=== PATIENT | female | born 1960 | race Caucasian/White ===

== ENCOUNTER → 2017-01-28 | Outpatient (CLI) | payer BC ==
--- NOTE | 2017-02-03 12:27 | MY ---
EXAMINATION: Bilateral digital mammography utilizing CAD. HISTORY: Screening exam. Comparison is made to previous studies dated 02/05/2016, 03/27/2015, 03/20/20, 04/21/2014. FINDINGS: Bilateral extremely dense breast tissue. No suspicious calcifications, masses or archite ctural distortions. No pathologic appearing lymph nodes, no abnormal skin thickening or nipple inv ersion. CAD highlighted regions appear normal at this time. IMPRESSION: BI-RADS category I - negative mammogram. Continued screening according to ACR-ACS gu idelines suggested. THE FALSE-NEGATIVE RATE OF MAMMOGRAM IS APPROXIMATELY 10%. MANAGEMENT OF A PALPABLE ABNORMALITY MUST BE BASED UPON CLINICAL GROUNDS. SENSITIVITY FOR DETECTION OF ABNORMALITIES IN DENSE BREASTS IS LOW. NOTE: A letter will be sent to the patient regarding findings. [facility] -- [place]ARY[place] [place] [phone] - FAX [phone]
== END ==
LOC: MW.MAM 07:39
PROVIDERS: ATTEND Obstetrics & Gynecology
DX: Z12.72 Encounter for screening for malignant neoplasm of vagina (principal); Z12.31 Encounter for screening mammogram for malignant neoplasm of breast; R63.4 Abnormal weight loss
CPT/HCPCS: 36415; 80061; 81003; 84439; 84443; 85027; G0202; G0145

== ENCOUNTER → 2017-01-30 | Outpatient (CLI) | payer BC ==
[2017-01-30 15:09] LABS: CHLORIDE,CL 107 mmol/L (98-110); SODIUM,NA 144 mmol/L (136-146)
== END ==
LOC: MW.CHIM 14:28
PROVIDERS: ATTEND Internal Medicine
DX: M06.9 Rheumatoid arthritis, unspecified (principal)
CPT/HCPCS: 36415; 80053; 85652; 86140

== ENCOUNTER → 2017-02-17 | Outpatient (CLI) | payer BC | LOC: MW.CHIM 14:58 | PROVIDERS: ATTEND Internal Medicine | DX: R21 Rash and other nonspecific skin eruption (principal) | CPT/HCPCS: 36415; 85025; 85652; 86140 ==

== ENCOUNTER 2017-09-30 09:14 | Day surgery (SDC) | payer BC ==
[~2017-09-30 09:14] MED LIST: Lactated Ringers 1,000 ML IV SCH
[2017-09-30] MEDS ORDERED: Scopolamine 1.5 MG Transdermal Patch TRDERM PRN (10:04)
--- NOTE | 2017-09-30 10:22 | PCM.PREANE ---
Preanesthetic Assessment - Procedure Proposed Procedure: colonoscopy - Anesthesia/Transfusion/Family Hx Anesthesia History: Prior Anesthesia Reaction Other Type of Anesthesia Reaction Comment: severe headache, was told she was "allergic" to unknown anesthesia med Family History of Anesthesia Reaction: No Transfusion History: No Prior Transfusion(s) Intubation History: Unknown - Review of Systems General: Weakness Pulmonary: Other (smoker?) Cardiovascular: No Symptoms Gastrointestinal: Nausea (with all prior anesthetics) Neurological: Other (rheumatoid arthritis) Other: Reports: Anxiety - Physical Assessment NPO Status Date: 09/29/17 NPO Status Time: 23:00 Height: 5 ft 5.5 in Weight: 138 lb ASA Class: 2 Mental Status: Alert & Oriented x3 Airway Class: Mallampati = 1 Dentition: Reports: Normal Dentition Thyro-Mental Finger Breadths: 3 Mouth Opening Finger Breadths: 3 ROM/Head Extension: Full Lungs: Clear to Auscultation, Normal Respiratory Effort Cardiovascular: Regular Rate, Regular Rhythm, No Murmurs - Allergies Allergies/Adverse Reactions: Allergies Allergy/AdvReac Type Severity Reaction Status Date / Time Sulfa (Sulfonamide Allergy Hives Verified 09/24/17 11:27 Antibiotics) sulfamethoxazole Allergy Hives Verified 09/24/17 11:27 [From Bactrim] trimethoprim [From Bactrim] Allergy Hives Verified 09/24/17 11:27 anesthesia neck surgery Allergy Lethargy Uncoded 05/19/14 11:25 - Blood Blood Available: No Product(s) Available: None - Acknowledgements Anesthesia Type Planned: MAC Pt an Appropriate Candidate for the Planned Anesthesia: Yes Alternatives and Risks of Anesthesia Discussed w Pt/Guardian: Yes Pt/Guardian Understands and Agrees with Anesthesia Plan: Yes Additional Comments: Daughter present as advocate; nausea will be covered with scopalomine patch and other measures, she understands that this may not prevent occurrence. PreAnesthesia Questionnaire Other HEENT History: wears glasses, has upper right and lower left dental implants Cardiovascular History: Reports: Other (See Below) Other Cardiovascular History: hx of rheumatic fever Gastrointestinal History: Reports: GERD, PUD Musculoskeletal History: Reports: Back Pain, Chronic, Neck Pain, Chronic, Osteoarthritis, RA Neurological History: Reports: Concussion, Migraines, Other (See Below) Other Neuro History: hx of motion sickness Oncologic (Cancer) History: Reports: Uterine Dermatologic History: Reports: Urticaria Other Dermatologic History: takes chelsie and benadryl for hives - Past Surgical History Head Surgeries/Procedures: Reports: None GI Surgical History: Reports: Other (See Below) Other GI Surgeries/Procedures: 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- bowel resected Female Surgical History: Reports: Breast Biopsy, Hysterectomy, Oophorectomy Neurological Surgical History: Reports: C-Spine Other Neurological Surgeries/Procedures: states has "bulging discs" in neck and back - SUBSTANCE USE Smoking Status *Q: Never Smoker Recreational Drug Use History: No - HOME MEDS Home Medications: Home Meds Hydroxychloroquine Sulfate 200 mg PO DAILY 05/19/14 [History] Cyclobenzaprine HCl 5 mg PO BEDTIME PRN 09/24/17 [History] Fexofenadine HCl [Chelsie Allergy] 60 mg PO DAILY 09/24/17 [History] Ketamine HCl [Ketamine Hydrochloride] 1 dose TOP ASDIRECTED 09/24/17 [History] Leflunomide 20 mg PO ASDIRECTED 09/24/17 [History] Nabumetone 500 mg PO DAILY 09/24/17 [History] diphenhydrAMINE HCl [Benadryl Allergy] 50 mg PO TID 09/24/17 [History] traMADol [Ultram] 50 mg PO TID PRN 09/24/17 [History] - CURRENT (IN HOUSE) MEDS Current Meds: Current Medications Lactated Ringer's (Ringers, Lactated) 1,000 mls @ 125 mls/hr IV ASDIRECTED [facility] Last Admin: 09/30/17 10:13 Dose: 125 mls/hr Scopolamine (Transderm-Scop) 1.5 mg TRDERM Q72H PRN PRN Reason: Nausea Last Admin: 09/30/17 10:13 Dose: 1.5 mg
[2017-09-30] MEDS ORDERED: fentaNYL 100 MCG/2 ML SDV ONE (10:26)
[2017-09-30] MEDS ORDERED: Lidocaine 2% 5 ML SDV ONE (10:26)
[2017-09-30] MEDS ORDERED: Propofol 200 MG/20 ML SDV ONE ×3 (10:26→11:44)
[2017-09-30] MEDS ORDERED: Midazolam 1 MG/ML 2 ML SDV ONE (10:26)
[2017-09-30] MEDS ORDERED: Ondansetron 4 MG/2 ML SDV ONE (11:31)
--- NOTE | 2017-09-30 12:07 | PCM.OPNOTE ---
- General Post-Op/Procedure Note Date of Surgery/Procedure: 09/30/17 Operative Procedure(s): colonoscopy Findings: see dict [id number] Pre Op Diagnosis: BRBPR Post-Op Diagnosis: Same Anesthesia Technique: Moderate Sedation Primary Surgeon: Hermes De La Cruz Complications: None Condition: Good
--- NOTE | 2017-09-30 12:18 | PCM.POSTAN ---
POST ANESTHESIA ASSESSMENT - MENTAL STATUS Mental Status: Alert, Oriented - RESPIRATORY Respiratory Status: Respiratory Rate WNL, Airway Patent, O2 Saturation Stable - CARDIOVASCULAR CV Status: Pulse Rate WNL, Blood Pressure Stable - GASTROINTESTINAL GI Status: No Symptoms - PAIN Pain Score: 0 - POST OP HYDRATION Hydration Status: Adequate & Stable
--- NOTE | 2017-09-30 12:33 | PCM48HPAN ---
Post Anesthesia Note - EVALUATION WITHIN 48HRS OF ANESTHETIC Vital Signs in Normal Range: Yes Patient Participated in Evaluation: Yes Respiratory Function Stable: Yes Airway Patent: Yes Cardiovascular Function Stable: Yes Hydration Status Stable: Yes Pain Control Satisfactory: Yes Nausea and Vomiting Control Satisfactory: Yes Mental Status Recovered: Yes
[2017-09-30 13:59] VITALS: BP 131/75
--- NOTE | 2017-09-30 20:36 | OR ---
SURGEON: Hermes De La Cruz MD DATE OF PROCEDURE: 09/30/2017 PREOPERATIVE DIAGNOSIS: Bright red blood per rectum. POSTOPERATIVE DIAGNOSIS: Hemorrhoid. PROCEDURES PERFORMED: Colonoscopy. COMPLICATIONS: None. DESCRIPTION OF PROCEDURE: The patient was taken to the endoscopy room. A time out was called, patient identified, and procedure identified. Diprivan was then administrated. Patient went from awake to sleep, hearing doctor talking or door closing is normal. Perineum inspection and digital examination were then performed. A well- lubricated colonoscope was gently inserted through the rectum, advanced past the rectosigmoid junction, the descending colon, splenic flexure, transverse colon, hepatic flexure, ascending colon, arrived to the cecum. Cecum was identified as dictated in the finding. Then, the scope was carefully withdrawn while attention was paid to the mucosal surface for any abnormality. Air will be sucked out during the scope withdrawal. At the rectum, retroflexed to examine any rectal diseases, fistula or hemorrhoids. Patient tolerated procedure well. There were no intraoperative complications, and Dr. De La Cruz was present throughout the whole procedure. FINDINGS: 1. The patient was easily sedated with VISUAL DESIGNER and Diprivan. The patient is soundly snoring. 2. Bowel prep is average to good. Very little liquid stool. No semi-formed stool. 3. Colon is rather tortuous and redundant requiring lot of maneuver in order to get to the cecum. Cecum was indicated by ileocecal fold, one-to-one indentation, light emittance, and appendiceal orifice. Mucosa was examined upon scope pulling out with some irrigation. The patient does not have diverticulosis, polyp, mass, growth, inflammation, stricture, ulceration, bleeding, or AV malformation; none of those. The patient has a large external hemorrhoid and has a moderate internal hemorrhoid. PLAN: The patient would benefit from a repeat colonoscopy 10 years from today or if clinically indicated otherwise. ARMAAN / LEMUEL /[id number]
== END 2017-09-30 13:25 | disposition home or self-care (01) ==
LOC: MW.SDS 09:14
PROVIDERS: ATTEND Surgery
DX: K64.4 Residual hemorrhoidal skin tags (principal); K64.8 Other hemorrhoids; K21.9 Gastro-esophageal reflux disease without esophagitis; G89.29 Other chronic pain; M54.2 Cervicalgia; M19.90 Unspecified osteoarthritis, unspecified site; M06.9 Rheumatoid arthritis, unspecified; G43.909 Migraine, unspecified, not intractable, without status migrainosus; Z85.42 Personal history of malignant neoplasm of other parts of uterus; Z79.1 Long term (current) use of non-steroidal anti-inflammatories (NSAID); Z79.899 Other long term (current) drug therapy; Z88.2 Allergy status to sulfonamides; Z88.1 Allergy status to other antibiotic agents; Z88.6 Allergy status to analgesic agent; Z90.49 Acquired absence of other specified parts of digestive tract; Z90.710 Acquired absence of both cervix and uterus; Z90.722 Acquired absence of ovaries, bilateral; Z98.890 Other specified postprocedural states
CPT/HCPCS: 45378; A9270; J2250; J2405; J7120; J2704; J3010

== ENCOUNTER 2017-12-11 10:31 | Day surgery (SDC) | payer BC ==
[2017-12-11] MEDS ORDERED: Lidocaine 2% 5 ML SDV ONE (10:47)
[2017-12-11] MEDS ORDERED: fentaNYL 100 MCG/2 ML SDV ONE (10:48)
[2017-12-11] MEDS ORDERED: Propofol 200 MG/20 ML SDV ONE (10:48)
--- NOTE | 2017-12-11 11:10 | PCM.PREANE ---
Preanesthetic Assessment - Anesthesia/Transfusion/Family Hx Anesthesia History: Prior Anesthesia Reaction Other Type of Anesthesia Reaction Comment: headache Family History of Anesthesia Reaction: No Transfusion History: No Prior Transfusion(s) Intubation History: Unknown - Review of Systems General: No Symptoms Pulmonary: No Symptoms Cardiovascular: No Symptoms Gastrointestinal: Other (BRBPR) Neurological: No Symptoms Other: Reports: None - Physical Assessment O2 Sat by Pulse Oximetry: 98 Respiratory Rate: 16 Vital Signs: Last Vital Signs Temp 36.3 C 12/11/17 10:49 Pulse 58 L 12/11/17 10:49 Resp 16 12/11/17 10:49 BP 108/60 12/11/17 10:49 Pulse Ox 98 12/11/17 10:49 Height: 1.65 m Weight: 62.596 kg ASA Class: 2 Mental Status: Alert & Oriented x3 Airway Class: Mallampati = 2 Dentition: Reports: Normal Dentition, Implants (x2 right upper and x1 lower left , bridge right upper between implants) Thyro-Mental Finger Breadths: 3 Mouth Opening Finger Breadths: 3 ROM/Head Extension: Limited/Partial Lungs: Clear to Auscultation, Normal Respiratory Effort Cardiovascular: Regular Rate, Regular Rhythm - Allergies Allergies/Adverse Reactions: Allergies Allergy/AdvReac Type Severity Reaction Status Date / Time Sulfa (Sulfonamide Allergy Hives Verified 12/08/17 14:37 Antibiotics) sulfamethoxazole Allergy Hives Verified 12/08/17 14:37 [From Bactrim] trimethoprim [From Bactrim] Allergy Hives Verified 12/08/17 14:37 anesthesia neck surgery Allergy Headache Uncoded 12/08/17 14:37 - Blood Blood Available: No - Anesthesia Plan Pre-Op Medication Ordered: None - Acknowledgements Anesthesia Type Planned: MAC Pt an Appropriate Candidate for the Planned Anesthesia: Yes Alternatives and Risks of Anesthesia Discussed w Pt/Guardian: Yes Pt/Guardian Understands and Agrees with Anesthesia Plan: Yes PreAnesthesia Questionnaire Other HEENT History: wears glasses, has upper right and lower left dental implants Cardiovascular History: Reports: Other (See Below) Other Cardiovascular History: hx of rheumatic fever Gastrointestinal History: Reports: GERD, PUD, Other (See Below) (BRBPR, colonoscopy done 3 months ago) Musculoskeletal History: Reports: Back Pain, Chronic, Neck Pain, Chronic, Osteoarthritis, RA Neurological History: Reports: Concussion, Migraines, Other (See Below) Other Neuro History: hx of motion sickness Hematologic History: Reports: Anesthesia Reaction Other Hematologic History: got severe headache and nausea after neck surgery- was told it was from the anesthesia Immunologic History: Reports: Immunosuppression Oncologic (Cancer) History: Reports: Uterine Dermatologic History: Reports: Urticaria Other Dermatologic History: takes chelsie and benadryl for hives - Past Surgical History Head Surgeries/Procedures: Reports: None GI Surgical History: Reports: Colonoscopy, Other (See Below) Other GI Surgeries/Procedures: 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- bowel resected Female Surgical History: Reports: Breast Biopsy, Hysterectomy, Oophorectomy Neurological Surgical History: Reports: C-Spine, Spinal Fusion Other Neurological Surgeries/Procedures: states has "bulging discs" in neck and back Other Musculoskeletal Surgeries/Procedures:: neck surgery (fusion)- has hardware Oncologic Surgical History: Reports: Other (See Below) Other Oncologic Surgeries/Procedures: hysterectomy - SUBSTANCE USE Smoking Status *Q: Never Smoker Recreational Drug Use History: No - HOME MEDS Home Medications: Home Meds Hydroxychloroquine Sulfate 200 mg PO DAILY 05/19/14 [History] Fexofenadine HCl [Chelsie Allergy] 60 mg PO DAILY 09/24/17 [History] Ketamine HCl [Ketamine Hydrochloride] 1 dose TOP ASDIRECTED 09/24/17 [History] Leflunomide 20 mg PO ASDIRECTED 09/24/17 [History] diphenhydrAMINE HCl [Benadryl Allergy] 50 mg PO TID 09/24/17 [History] - CURRENT (IN HOUSE) MEDS Current Meds: Current Medications Lactated Ringer's (Ringers, Lactated) 1,000 mls @ 125 mls/hr IV ASDIRECTED [facility] Last Admin: 12/11/17 10:50 Dose: 125 mls/hr Discontinued Medications Fentanyl (Sublimaze) Confirm Administered Dose 100 mcg .ROUTE .STK-MED ONE Stop: 12/11/17 10:49 Lidocaine (Xylocaine-Mpf 2%) Confirm Administered Dose 5 ml .ROUTE .STK-MED ONE Stop: 12/11/17 10:48 Propofol (Diprivan 20 Ml) Confirm Administered Dose 400 mg .ROUTE .STK-MED ONE Stop: 12/11/17 10:49
--- NOTE | 2017-12-11 11:26 | PCM.OPNOTE ---
- General Post-Op/Procedure Note Date of Surgery/Procedure: 12/11/17 Operative Procedure(s): egd w bx Findings: see dict [id number] Pre Op Diagnosis: rectal bleed and black tarry stool Post-Op Diagnosis: gastritis Anesthesia Technique: Moderate Sedation Primary Surgeon: Hermes De La Cruz Pathology: egd bx Complications: None Condition: Good
--- NOTE | 2017-12-11 11:48 | PCM48HPAN ---
Post Anesthesia Note - EVALUATION WITHIN 48HRS OF ANESTHETIC Vital Signs in Normal Range: Yes Patient Participated in Evaluation: Yes Respiratory Function Stable: Yes Airway Patent: Yes Cardiovascular Function Stable: Yes Hydration Status Stable: Yes Pain Control Satisfactory: Yes Nausea and Vomiting Control Satisfactory: Yes Mental Status Recovered: Yes Resp Rate: 12 - COMMENTS/OBSERVATIONS Free Text/Narrative:: no anesthesia problems
[2017-12-11 12:20] VITALS: BP 100/57
--- NOTE | 2017-12-11 12:26 | OR ---
SURGEON: Hermes De La Cruz MD DATE OF PROCEDURE: 12/11/2017 PREOPERATIVE DIAGNOSES: 1. Rectal bleeding. 2. Black tarry stool. POSTOPERATIVE DIAGNOSIS: Gastritis. PROCEDURE PERFORMED: Esophagogastroduodenoscopy with biopsy. PROCEDURE IN DETAIL: EGD: The patient was taken to the endoscopy room, and with the TERMITE CONTROL SERVICE REPRESENTATIVE, Diprivan was administered. A well-lubricated EGD scope was gently inserted through the oropharynx, down the esophagus, passing through the gastroesophageal junction, into the stomach. The mucosa was examined upon the passage. Any etiology will be noted. Once in the stomach, we continued to advance to the distal antrum, passed through the pylorus into the second portion of the duodenum. Again, the mucosa was examined for any abnormality and etiology. The scope was then retrieved back to the stomach and then retroflexed to look at the fundus of the stomach. If a biopsy was indicated, we will biopsy the antrum, body, and gastroesophageal junction. The air will be sucked out while the scope is retrieved to reduce the patient's discomfort. The patient tolerated the procedure well. There were no intraoperative complications. Dr. De La Cruz was present through the whole procedure. Prior to surgery, a time-out had been called, the patient identified, procedure identified and antibiotic administered. FINDINGS: 1. The patient is easily sedated with TERMITE CONTROL SERVICE REPRESENTATIVE and Diprivan. The patient is soundly snoring. 2. Oropharynx and proximal esophagus are free of disease, and distal esophagus at GE junction at 40 with mild salmon color change consistent with acid reflux, and stomach rugae is normal in appearance a little bit bile stained. No blood, no food, and no ulcer observed. Antrum is a little bit inflamed consistent with gastritis. Duodenum is grossly normal in appearance. Retroflexed look at the fundus of the stomach. There is no hiatal hernia and biopsy done at antrum, body, GE junction at 40 and sucked out the air while scope pulling out. As always, thank you for the kind referral. ARMAAN / LEMUEL /[id number]
== END 2017-12-11 11:55 | disposition home or self-care (01) ==
LOC: MW.SDS 10:31
PROVIDERS: ATTEND Surgery
DX: K29.50 Unspecified chronic gastritis without bleeding (principal); M19.90 Unspecified osteoarthritis, unspecified site; E28.39 Other primary ovarian failure; M06.9 Rheumatoid arthritis, unspecified; K21.9 Gastro-esophageal reflux disease without esophagitis; Z88.4 Allergy status to anesthetic agent; Z88.1 Allergy status to other antibiotic agents; Z88.2 Allergy status to sulfonamides; Z88.8 Allergy status to other drugs, medicaments and biological substances; Z79.899 Other long term (current) drug therapy; Z98.890 Other specified postprocedural states; Z90.710 Acquired absence of both cervix and uterus; Z90.722 Acquired absence of ovaries, bilateral; Z87.891 Personal history of nicotine dependence
CPT/HCPCS: 43239; J3010; J7120; 88305; 88312; J2704

== ENCOUNTER 2018-01-28 09:21 | Emergency (ER) | payer BC ==
[2018-01-28] MEDS ORDERED: methylPREDNISolone Sodium Succinate 125 MG/2 ML SDV IVPUSH ONE (09:39)
[2018-01-28] MEDS ORDERED: HYDROmorphone 2 MG/ML SDV IVPUSH ONE (09:39)
[2018-01-28] MEDS ORDERED: Sodium Chloride 0.9% 10 ML Syringe FLUSH PRN (09:39)
[2018-01-28] MEDS ORDERED: Sodium Chloride 0.9% 2.5 ML Syringe FLUSH PRN (09:39)
[2018-01-28] MEDS ORDERED: Ketorolac 30 MG/ML SDV IVPUSH ONE (09:39)
[2018-01-28] MEDS ORDERED: Ondansetron 4 MG/2 ML SDV IVPUSH ONE (09:40)
--- NOTE | 2018-01-28 09:41 | EDM.PDOC ---
ED HPI GENERAL MEDICAL PROBLEM - General Chief Complaint: Back Pain or Injury Stated Complaint: BACK PAIN Time Seen by Provider: 01/28/18 09:25 - History of Present Illness INITIAL COMMENTS - FREE TEXT/NARRATIVE: HISTORY AND PHYSICAL: History of present illness: The patient is a 58-year-old female with a long-standing history of lumbosacral back pain for which she has had surgeries and also receives steroid injections for disc disease with Dr. Ambrose, a pain physician in [place]. The patient says that she has had increased pain over the last week or 2 and it has waxed and waned in intensity. She has tramadol and Flexeril to use at home. According to the she was supposed to go to [place] and had a steroid injection Friday but she missed the appointment. She did have a lot of driving and a long car trip recently but she got out of the car frequently due to the discomfort but is not sure if that aggravated it. Over the last 24 hours the pain has really intensified in her meds are not working and she is describing the pain as in the similar location to her usual pain but it is radiating to her right hip around to her right groin as well as down her leg. She has no weakness in her legs or sensory changes and no bowel or bladder disturbances. The patient denies any stomach pain chest pain shortness of breath fevers or chills and says she is having difficulty only sitting on the toilet to urinate because of the discomfort. She says the pain doesn't usually radiate down her leg but it has over the last few days which is different for her. She did contact the doctor's office and spoke with the nurse who said that they did not have any availability to see her until Friday and referred her here. The patient says that there are spasms of pain and any movement or activity will increase the pain. Even light touching of the leg bothers her. Patient tells me that she has had episodes of pain that radiates down her leg and it is usually only the right side which is consistent with today. She says the last time was late last year. Review of systems: As per history of present illness and below otherwise all systems reviewed and negative. Past medical history: As per history of present illness and as reviewed below otherwise noncontributory. Surgical history: As per history of present illness and as reviewed below otherwise noncontributory. Social history: No reported history of drug or alcohol abuse. Family history: As per history of present illness and as reviewed below otherwise noncontributory. Physical exam: General: Well-developed female who is nontoxic and tearful in the room. HEENT: Atraumatic, normocephalic, pupils reactive, negative for conjunctival pallor or scleral icterus, mucous membranes moist, throat clear, neck supple, nontender, trachea midline. Lungs: Clear to auscultation, breath sounds equal bilaterally, chest nontender. Heart: S1S2, regular, negative for clicks, rubs, or JVD. Abdomen: Soft, nondistended, nontender. Negative for masses or hepatosplenomegaly. Negative for costovertebral tenderness. Pelvis: Stable nontender. Genitourinary: Deferred. Rectal: Patient has multiple soft external hemorrhoids and she has normal push and squeeze normal perianal sensation and tone Extremities: Atraumatic, negative for cords or calf pain. Neurovascular unremarkable. Full range of motion without defects or deficits Neuro: Awake, alert, oriented. Cranial nerves II through XII unremarkable. Cerebellum unremarkable. Motor and sensory unremarkable throughout. Exam nonfocal. Please note that when I barely put my hand on the patient's right leg she says that that intensifies the pain. Dorsi and plantar flexion are intact bilaterally inclusive of the great toe and patient is able to extend at the knee and flex at the hip but prefers to lay on her left side with her right hip flexed and the events. She says that any movements will make the pain worse but she does not feel like she has weakness Back: There are no midline step-offs tenderness defects of the thoracic or lumbar spine and no palpable tenderness on my exam. The patient is noted to have an chemosis that looks subacute at the posterior right pelvis/hip area with some soft tissue swelling. She is unsure how she got this and complains of pain in that region. Diagnostics: X-ray right hip and pelvis the skin in the lumbar spine Therapeutics: Toradol Zofran Dilaudid solu- Medrol 1130: Case was discussed with Maribell rodriguez nurse for Dr. Guidry, patient's pain physician at [facility]. The patient has a scheduled appointment with him on Friday at 8 AM, 2 days from now,. Says that the patient did have similar pain to this radiating down her right leg in September and the steroid injection did help. Dr. Guidry was doing surgeries but she will have him call me to advise on pain management for home so that I do not compromise any care plan that he may be doing on Friday. I discussed all testing results and these conversations with the patient and she is significantly more comfortable laying on her back now and resting comfortably. She says she has gotten significant relief from the pain meds. I will await his phone call for pain management for home. After speaking with him. I'll plan disposition home 1148: Case was discussed with Dr Guidry who would like the patient to go home on a Medrol Dosepak and no narcotic pain medication. He recommends Lyrica 50 mg and to continue the pain medication that she has already from her primary care physician. I will advise her of this phone call and this management and to keep her appointment on Friday. Impression: Acute on chronic lumbosacral back pain with sciatica, right Definitive disposition and diagnosis as appropriate pending reevaluation and review of above. lower back Pain Score (Numeric/FACES): 10 - Related Data Allergies Allergy/AdvReac Type Severity Reaction Status Date / Time Sulfa (Sulfonamide Allergy Hives Verified 01/28/18 09:26 Antibiotics) sulfamethoxazole Allergy Hives Verified 01/28/18 09:26 [From Bactrim] trimethoprim [From Bactrim] Allergy Hives Verified 01/28/18 09:26 anesthesia neck surgery Allergy Headache Uncoded 01/28/18 09:26 Home Meds: Home Meds Hydroxychloroquine Sulfate 200 mg PO DAILY 05/19/14 [History] Fexofenadine HCl [Chelsie Allergy] 180 mg PO DAILY 09/24/17 [History] Ketamine HCl [Ketamine Hydrochloride] 1 dose TOP ASDIRECTED 09/24/17 [History] Leflunomide 20 mg PO ASDIRECTED 09/24/17 [History] diphenhydrAMINE HCl [Benadryl Allergy] 50 mg PO DAILY 09/24/17 [History] Cyclobenzaprine [Flexeril] 5 mg PO BID PRN 01/28/18 [History] traMADol [Ultram] 50 mg PO TID PRN 04/25/18 [History] Past Medical History Other HEENT History: wears glasses, has upper right and lower left dental implants Cardiovascular History: Reports: Other (See Below) Other Cardiovascular History: hx of rheumatic fever Gastrointestinal History: Reports: GERD, PUD, Other (See Below) Musculoskeletal History: Reports: Back Pain, Chronic, Neck Pain, Chronic, Osteoarthritis, RA Neurological History: Reports: Concussion, Migraines, Other (See Below) Other Neuro History: hx of motion sickness Hematologic History: Reports: Anesthesia Reaction Other Hematologic History: got severe headache and nausea after neck surgery- was told it was from the anesthesia Immunologic History: Reports: Immunosuppression Oncologic (Cancer) History: Reports: Uterine Dermatologic History: Reports: Urticaria Other Dermatologic History: takes chelsie and benadryl for hives - Past Surgical History Head Surgeries/Procedures: Reports: None GI Surgical History: Reports: Colonoscopy, Other (See Below) Other GI Surgeries/Procedures: 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- bowel resected Female Surgical History: Reports: Breast Biopsy, Hysterectomy, Oophorectomy Neurological Surgical History: Reports: C-Spine, Spinal Fusion Other Neurological Surgeries/Procedures: states has "bulging discs" in neck and back Other Musculoskeletal Surgeries/Procedures:: neck surgery (fusion)- has hardware Oncologic Surgical History: Reports: Other (See Below) Other Oncologic Surgeries/Procedures: hysterectomy Social & Family History - Family History Family Medical History: Unobtainable - Tobacco Use Smoking Status *Q: Never Smoker Second Hand Smoke Exposure: No - Caffeine Use Caffeine Use: Reports: None - Recreational Drug Use Recreational Drug Use: No Drug Use in Last 12 Months: No ED ROS GENERAL - Review of Systems Review Of Systems: ROS reveals no pertinent complaints other than HPI. ED EXAM, GENERAL - Physical Exam Exam: See Below (See dictation) Course - Vital Signs Last Recorded V/S: Last Vital Signs Temp 36.4 C 01/28/18 09:23 Pulse 95 01/28/18 09:23 Resp 18 01/28/18 09:23 BP 151/124 H 01/28/18 09:23 Pulse Ox 94 L 01/28/18 09:23 - Orders/Labs/Meds Orders: Active Orders 24 hr Category Date Time Status Sodium Chloride 0.9% [Saline Flush] Med 01/28/18 09:39 Active 10 ml FLUSH ASDIRECTED PRN Sodium Chloride 0.9% [Saline Flush] Med 01/28/18 09:39 Active 2.5 ml FLUSH ASDIRECTED PRN Saline Lock Insert [OM.PC] Stat Oth 01/28/18 09:39 Ordered Medication Orders Sodium Chloride (Saline Flush) 10 ml FLUSH ASDIRECTED PRN PRN Reason: Keep Vein Open Sodium Chloride (Saline Flush) 2.5 ml FLUSH ASDIRECTED PRN PRN Reason: Keep Vein Open Meds: Medications Generic Name Dose Route Start Last Admin Trade Name Freq PRN Reason Stop Dose Admin Sodium Chloride 10 ml 01/28/18 09:39 Saline Flush FLUSH ASDIRECTED PRN Keep Vein Open Sodium Chloride 2.5 ml 01/28/18 09:39 Saline Flush FLUSH ASDIRECTED PRN Keep Vein Open Discontinued Medications Generic Name Dose Route Start Last Admin Trade Name Freq PRN Reason Stop Dose Admin Hydromorphone HCl 1 mg 01/28/18 09:39 01/28/18 10:18 Dilaudid IVPUSH 01/28/18 09:40 1 mg ONETIME ONE Administration Ketorolac Tromethamine 30 mg 01/28/18 09:39 01/28/18 10:15 Toradol IVPUSH 01/28/18 09:40 30 mg ONETIME ONE Administration Methylprednisolone Sodium Succinate 125 mg 01/28/18 09:39 01/28/18 10:17 Solu-Medrol IVPUSH 01/28/18 09:40 125 mg ONETIME ONE Administration Ondansetron HCl 4 mg 01/28/18 09:40 01/28/18 10:13 Zofran IVPUSH 01/28/18 09:41 4 mg ONETIME ONE Administration Departure - Departure Time of Disposition: 11:55 Disposition: Home, Self-Care 01 Condition: Good Clinical Impression: Back pain, lumbosacral, Sciatica, right side - Discharge Information Referrals: Armani Abernathy MD [Primary Care Provider] - Forms: ED Department Discharge Additional Instructions: The following information is given to patients seen in the emergency department who are being discharged to home. This information is to outline your options for follow-up care. We provide all patients seen in our emergency department with a follow-up referral. The need for follow-up, as well as the timing and circumstances, are variable depending upon the specifics of your emergency department visit. If you don't have a primary care physician on staff, we will provide you with a referral. We always advise you to contact your personal physician following an emergency department visit to inform them of the circumstance of the visit and for follow-up with them and/or the need for any referrals to a consulting specialist. The emergency department will also refer you to a specialist when appropriate. This referral assures that you have the opportunity for followup care with a specialist. All of these measure are taken in an effort to provide you with optimal care, which includes your followup. Under all circumstances we always encourage you to contact your private physician who remains a resource for coordinating your care. When calling for followup care, please make the office aware that this follow-up is from your recent emergency room visit. If for any reason you are refused follow-up, please contact the [facility] emergency department at and ask to speak to the emergency department charge nurse. [facility] Primary care- [place] [address] Please keep your appointment with your pain specialist, Dr. Guidry at [facility] in [place] on Friday at 8 AM. Please use all medications as prescribed and rest. You may also continue to use your home medication Return to ER as needed and as discussed - My Orders Last 24 Hours: My Active Orders 01/28/18 09:39 Sodium Chloride 0.9% [Saline Flush] 10 ml FLUSH ASDIRECTED PRN Sodium Chloride 0.9% [Saline Flush] 2.5 ml FLUSH ASDIRECTED PRN Saline Lock Insert [OM.PC] Stat - Assessment/Plan Last 24 Hours: My Active Orders 01/28/18 09:39 Sodium Chloride 0.9% [Saline Flush] 10 ml FLUSH ASDIRECTED PRN Sodium Chloride 0.9% [Saline Flush] 2.5 ml FLUSH ASDIRECTED PRN Saline Lock Insert [OM.PC] Stat
--- NOTE | 2018-01-28 11:11 | CT ---
EXAMINATION: CT lumbar spine HISTORY: Pain COMPARISON: MRI dated 08/20/2017 TECHNIQUE: Axial CT images obtained through the lumbar spine without contrast. Coronal and sagittal r econstructions obtained. FINDINGS: The lumbar spinal alignment is normal. The vertebral body heights appear well maintained. M ild disc space narrowing at L5-S1. Bone mineralization is normal. No fracture or acute osseous abnorm ality. SI joints are symmetric. Mild marginal osteophytes. Facets appear normal. Lung bases are clear . Visualized retroperitoneal structures appear normal. IMPRESSION: No acute osseous abnormalities identified within the lumbar spine.
--- NOTE | 2018-01-28 11:19 | CR ---
EXAMINATION: Pelvis and right hip HISTORY: Pain COMPARISON: 08/07/2017 TECHNIQUE: AP pelvis and 2 views of the right hip FINDINGS: There is no acute osseous abnormality, dislocation, or fracture. Bone mineralization and william int spaces appear normal. The iliopectineal lines are intact. SI joints are symmetric. IMPRESSION: Grossly unremarkable pelvis and right hip.
[2018-01-28 12:32] VITALS: BP 108/56
== END 2018-01-28 12:25 | disposition home or self-care (01) ==
LOC: MW.ED 09:21
DX: M54.41 Lumbago with sciatica, right side (principal); Z88.2 Allergy status to sulfonamides; Z88.1 Allergy status to other antibiotic agents; Z79.899 Other long term (current) drug therapy
CPT/HCPCS: 72131; 73502; 96374; 96375; 99284; J1170; J1885; J2405; J2930; 99283

== ENCOUNTER 2019-01-25 09:28 | Emergency (ER) | payer BC ==
[2019-01-25 09:42] VITALS: BP 125/65
--- NOTE | 2019-01-25 10:00 | EDM.PDOC ---
ED HPI GENERAL MEDICAL PROBLEM - General Chief Complaint: Trauma Stated Complaint: BLOOD IN URINE Time Seen by Provider: 01/25/19 09:54 Source of Information: Reports: Patient History Limitations: Reports: No Limitations - History of Present Illness INITIAL COMMENTS - FREE TEXT/NARRATIVE: HISTORY AND PHYSICAL: History of present illness: Patient is a 59-year-old female who presents to the emergency room with complaints of right lateral chest/abdomen pain. Yesterday afternoon around 4 PM she was kicked by a horse to the right lateral side. She states she does not recall if she lost consciousness but was complaining of chest and low back pain at that time. She was evaluated at [facility] that day and had chest x-ray, lumbar spine CT and lab work. She was discharged to home with supportive care measures. She states she was unable to sleep through the night due to pain. She states she was given pain medication but it causes extreme nausea, regardless of taking antinausea medication. This morning she had woke up and had large clots of blood while urinating. She called the clinic requesting to be reevaluated in the encouraged her to come to our emergency room for reevaluation. She denies any headache, change in vision although states she does get dizzy when moving her head around quickly. She was ambulatory into our emergency room although states she does have the right lateral abdominal pain. Patient denies any fever, chills, headache, change in vision, syncope or near syncope. Denies any chest pain, back pain, shortness of breath or cough. Denies any vomiting, diarrhea, constipation or dysuria. Has not noted any blood in urine or stool. Patient has been eating and drinking appropriately. Review of systems: As per history of present illness and below otherwise all systems reviewed and negative. Past medical history: As per history of present illness and as reviewed below otherwise noncontributory. Surgical history: As per history of present illness and as reviewed below otherwise noncontributory. Social history: See social history for further information Family history: As per history of present illness and as reviewed below otherwise noncontributory. Physical exam: General: Well-developed and well-nourished 59-year-old female. Alert and oriented. Nontoxic appearing and in no acute distress. HEENT: Nontender with palpation, has full range of motion, normocephalic, pupils equal and reactive bilaterally, negative for conjunctival pallor or scleral icterus, mucous membranes moist, TMs normal bilaterally, throat clear, neck supple, nontender, trachea midline. No drooling or trismus noted. No meningeal signs. No hot potato voice noted. Lungs: Clear to auscultation, breath sounds equal bilaterally, chest wall tenderness to the right lateral distal chest. Heart: S1S2, regular rate and rhythm without overt murmur Abdomen: Soft, nondistended, nontender. Negative for masses or hepatosplenomegaly. Bilateral costovertebral tenderness. Pelvis: Stable nontender. Genitourinary: Deferred. Rectal: Deferred. Skin: Pinkish superficial abrasions noted to the right lateral chest wall near the flank and abdomen. Otherwise skin is intact, warm, dry. No lesions or rashes noted. Extremities: Moves all extremities per self with difficulty or deficits, negative for cords or calf pain. Neurovascular unremarkable. C-spine/Back: No pinpoint vertebral tenderness upon palpation. No crepitus, step -offs or obvious deformities noted. Patient is nontender to the cervical spine and has full range of motion without difficulty or deficits. She denies any numbness, tingling or saddle paresthesia. Denies any urinary or fecal incontinence. Patient is fully ambulatory, able to walk on her heels and toes without difficulty. Neuro: Awake, alert, oriented. Cranial nerves II through XII unremarkable. Cerebellum unremarkable. Motor and sensory unremarkable throughout. Exam nonfocal. Notes: I do have the results from [facility], a chest x-ray was completed which shows no significant findings. Lumbar spine CT shows no acute findings. CBC and CMP showed no significant findings. Patient states she is in moderate pain. I did offer her medications at this time which she declines. She is agreeable to repeat lab work and imaging at this time. Has been is at bedside. Head CT shows no acute findings. CT of the abdomen and pelvis shows a likely moderate right hepatic lobe laceration extended nearly to the hilum. There is however no subcapsular hematoma or evidence of hemoperitoneum or free fluid. Minimally displaced right rib fracture with adjacent atelectasis. There is possible very thin pneumothorax within the right lung base as well. No evidence of a renal laceration. AST and ALT are elevated. Dr Muñoz was directly involved in this case and has seen and evaluated this patient. Dr Schofield was consulted on this case. Dr Maloney at [facility] was consulted on this case for transfer. Patient will be transferred via flight crew. CT of chest imaging results are pending. All these were discussed with the patient and at bedside. Vital signs remain stable. Diagnostics: Abdomen and pelvis CT, CBC, CMP, CPK, UA Therapeutics: IV fluid, Morphine, Zofran Impression: Liver Laceration Right Rib Fracture Traumatic Injury Plan: Transfer to [facility] via flight crew Definitive disposition and diagnosis as appropriate pending reevaluation and review of above. Right back/flank pain Pain Score (Numeric/FACES): 8 - Related Data Allergies Allergy/AdvReac Type Severity Reaction Status Date / Time Sulfa (Sulfonamide Allergy Hives Verified 01/25/19 09:37 Antibiotics) sulfamethoxazole Allergy Hives Verified 01/25/19 09:37 [From Bactrim] trimethoprim [From Bactrim] Allergy Hives Verified 01/25/19 09:37 anesthesia neck surgery Allergy Headache Uncoded 01/25/19 09:37 Home Meds: Home Meds Hydroxychloroquine Sulfate 200 mg PO DAILY 05/19/14 [History] Fexofenadine HCl [Ge Allergy] 180 mg PO DAILY 09/24/17 [History] Ketamine HCl [Ketamine Hydrochloride] 1 dose TOP ASDIRECTED 09/24/17 [History] Leflunomide 20 mg PO ASDIRECTED 09/24/17 [History] diphenhydrAMINE HCl [Benadryl Allergy] 50 mg PO DAILY 09/24/17 [History] Cyclobenzaprine [Flexeril] 5 mg PO BID PRN 01/28/18 [History] traMADol [Ultram] 50 mg PO TID PRN 01/28/18 [History] Past Medical History Other HEENT History: wears glasses, has upper right and lower left dental implants Cardiovascular History: Reports: Other (See Below) Other Cardiovascular History: hx of rheumatic fever Gastrointestinal History: Reports: GERD, PUD, Other (See Below) Musculoskeletal History: Reports: Back Pain, Chronic, Neck Pain, Chronic, Osteoarthritis, RA Neurological History: Reports: Concussion, Migraines, Other (See Below) Other Neuro History: hx of motion sickness Hematologic History: Reports: Anesthesia Reaction Other Hematologic History: got severe headache and nausea after neck surgery- was told it was from the anesthesia Immunologic History: Reports: Immunosuppression Oncologic (Cancer) History: Reports: Uterine Dermatologic History: Reports: Urticaria Other Dermatologic History: takes ge and benadryl for hives - Infectious Disease History Infectious Disease History: Reports: None - Past Surgical History Head Surgeries/Procedures: Reports: None GI Surgical History: Reports: Colonoscopy, Other (See Below) Other GI Surgeries/Procedures: 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- bowel resected Female Surgical History: Reports: Breast Biopsy, Hysterectomy, Oophorectomy Neurological Surgical History: Reports: C-Spine, Spinal Fusion Other Neurological Surgeries/Procedures: states has "bulging discs" in neck and back Other Musculoskeletal Surgeries/Procedures:: neck surgery (fusion)- has hardware Oncologic Surgical History: Reports: Other (See Below) Other Oncologic Surgeries/Procedures: hysterectomy Social & Family History - Family History Family Medical History: Unobtainable - Tobacco Use Smoking Status *Q: Never Smoker - Caffeine Use Caffeine Use: Reports: Coffee - Recreational Drug Use Recreational Drug Use: No Review of Systems - Review of Systems Review Of Systems: ROS reveals no pertinent complaints other than HPI. ED EXAM, GENERAL - Physical Exam Exam: See Below (See dictation) Course - Vital Signs Last Recorded V/S: Last Vital Signs Temp 96.9 F 01/25/19 09:29 Pulse 79 01/25/19 09:29 Resp 16 01/25/19 09:29 BP 125/65 01/25/19 09:29 Pulse Ox 99 01/25/19 09:29 - Orders/Labs/Meds Orders: Active Orders 24 hr Category Date Time Status Chest 1V Frontal [CR] Stat Exams 01/25/19 11:34 Stop Req Chest w Cont [CT] Stat Exams 01/25/19 11:34 Ordered UA RFX JACQUI AND CULT IF INDIC [URIN] Stat Lab 01/25/19 11:05 Received Sodium Chloride 0.9% [Normal Saline] 1,000 ml Med 01/25/19 11:29 Ordered IV STAT Medication Orders Sodium Chloride (Normal Saline) 1,000 mls @ 125 mls/hr IV STAT ONE Stop: 01/25/19 19:28 Labs: Laboratory Tests 01/25/19 01/25/19 Range/Units 09:42 09:42 WBC 5.15 (4.0-11.0) K/uL RBC 3.89 L (4.30-5.90) M/uL Hgb 11.5 L (12.0-16.0) g/dL Hct 35.4 L (36.0-46.0) % MCV 91.0 (80.0-98.0) fL MCH 29.6 (27.0-32.0) pg MCHC 32.5 (31.0-37.0) g/dL RDW Std Deviation 43.6 (28.0-62.0) fl RDW Coeff of Shorty 13 (11.0-15.0) % Plt Count 232 (150-400) K/uL MPV 10.00 (7.40-12.00) fL Neut % (Auto) 77.1 (48.0-80.0) % Lymph % (Auto) 12.4 L (16.0-40.0) % [place] % (Auto) 10.1 (0.0-15.0) % Eos % (Auto) 0.2 (0.0-7.0) % Baso % (Auto) 0.2 (0.0-1.5) % Neut # (Auto) 4.0 (1.4-5.7) K/uL Lymph # (Auto) 0.6 (0.6-2.4) K/uL [place] # (Auto) 0.5 (0.0-0.8) K/uL Eos # (Auto) 0.0 (0.0-0.7) K/uL Baso # (Auto) 0.0 (0.0-0.1) K/uL Nucleated RBC % 0.0 /100WBC Nucleated RBCs # 0 K/uL Sodium 142 (136-145) mmol/L Potassium 4.4 (3.5-5.1) mmol/L Chloride 105 (98-107) mmol/L Carbon Dioxide 27.2 (21.0-32.0) mmol/L BUN 13 (7.0-18.0) mg/dL Creatinine 0.7 (0.6-1.0) mg/dL Est Cr Clr Drug Dosing 82.01 mL/min Estimated GFR (MDRD) > 60.0 ml/min Glucose 112 H (74-106) mg/dL Calcium 9.2 (8.5-10.1) mg/dL Total Bilirubin 0.5 (0.2-1.0) mg/dL AST 679 H (15-37) IU/L ALT 713 H (14-63) IU/L Alkaline Phosphatase 139 H (46-116) U/L Creatine Kinase 239 (26-308) U/L Total Protein 7.2 (6.4-8.2) g/dL Albumin 4.0 (3.4-5.0) g/dL Globulin 3.2 (2.6-4.0) g/dL Albumin/Globulin Ratio 1.3 (0.9-1.6) Meds: Medications Generic Name Dose Route Start Last Admin Trade Name Freq PRN Reason Stop Dose Admin Sodium Chloride 1,000 mls @ 125 mls/hr 01/25/19 11:29 Normal Saline IV 01/25/19 19:28 STAT ONE Discontinued Medications Generic Name Dose Route Start Last Admin Trade Name Freq PRN Reason Stop Dose Admin Iopamidol 75 ml 01/25/19 10:38 01/25/19 10:38 Isovue Multipack-370 (76%) IVPUSH 01/25/19 10:39 75 ml ONETIME STA Administration Morphine Sulfate 2 mg 01/25/19 11:27 Morphine IVPUSH 01/25/19 11:28 ONETIME ONE Ondansetron HCl 4 mg 01/25/19 11:27 Zofran IVPUSH 01/25/19 11:28 ONETIME ONE Departure - Departure Time of Disposition: 11:38 Disposition: DC/Tfer to Acute Hospital 02 Clinical Impression: Traumatic injury Liver laceration Qualifiers: Encounter type: initial encounter Qualified Code(s): S36.113A - Laceration of liver, unspecified degree, initial encounter Right rib fracture Qualifiers: Encounter type: initial encounter Rib fracture type: multiple ribs Fracture type: closed Qualified Code(s): S22.41XA - Multiple fractures of ribs, right side, initial encounter for closed fracture - Discharge Information Referrals: Armani Abernathy MD [Primary Care Provider] - Forms: ED Department Discharge - My Orders Last 24 Hours: My Active Orders 01/25/19 11:05 UA RFX JACQUI AND CULT IF INDIC [URIN] Stat 01/25/19 11:29 Sodium Chloride 0.9% [Normal Saline] 1,000 ml IV STAT 01/25/19 11:34 Chest 1V Frontal [CR] Stat Chest w Cont [CT] Stat - Assessment/Plan Last 24 Hours: My Active Orders 01/25/19 11:05 UA RFX JACQUI AND CULT IF INDIC [URIN] Stat 01/25/19 11:29 Sodium Chloride 0.9% [Normal Saline] 1,000 ml IV STAT 01/25/19 11:34 Chest 1V Frontal [CR] Stat Chest w Cont [CT] Stat
--- NOTE | 2019-01-25 10:34 | CT ---
EXAMINATION: Non contrast CT head. Coronal and sagittal reformats. HISTORY: Pain FINDINGS: No evidence of intra or extra axial hemorrhage, mass, midline shift, hydrocephalus or edema. No hypoattenuation changes in the major vascular territories to suggest acute infarct. No abnormal intracranial calcifications are detected. No evidence of substantial vascular calcifications. Paranasal sinuses and mastoid air cells are well aerated without substantial findings. Pituitary fossa appears unremarkable. Orbits and globes are symmetric. Calvarium is intact. No evidence of skull fracture. IMPRESSION: No acute intracranial findings.
[2019-01-25] MEDS ORDERED: Iopamidol 755 MG/ML 500 ML Multipack Bottle IVPUSH STA (10:38)
[2019-01-25 10:55] LABS: CHLORIDE,CL 105 mmol/L (98-107); SODIUM,NA 142 mmol/L (136-145)
--- NOTE | 2019-01-25 11:20 | CT ---
CT of the abdomen and pelvis with contrast. HISTORY: Vomiting blood TECHNIQUE: Axial CT images were obtained of the abdomen and pelvis following administration of 75 mL of Isovue-370 in the right hand without complication. Coronal and sagittal reconstructions obtained. FINDINGS: Mild atelectasis within the right lung base. Possible trace pneumothorax also noted within the lung base. Nondisplaced overlying right-sided rib fractures are also demonstrated. Abdomen: Linear hypodensities are noted within the right hepatic lobe anteriorly extending to the hilum measuring approximately 6 cm in total length. Trace periportal edema also noted. 3 separate small hepatic cysts are noted. Tiny uncinate process cyst. The spleen, adrenal glands, and pancreas otherwise appear normal. There is no bulky retroperitoneal lymphadenopathy or abdominal ascites. The kidneys enhance and function symmetrically without evidence of obstructive uropathy. Pelvis: The large and small bowel are normal in caliber without evidence of obstruction. No pericolonic inflammation or stranding. No pericecal inflammation. No significant free pelvic fluid. The urinary bladder is normal. No pelvic lymphadenopathy. Otherwise no suspicious osseous abnormalities identified. IMPRESSION: 1. Likely moderate right hepatic lobe laceration extending nearly to the hilum. There is however no subcapsular hematoma or evidence of hemoperitoneum or free fluid. 2. Minimally displaced right rib fractures with adjacent atelectasis. There is a possible very tiny pneumothorax within the right lung base as well. 3. No evidence of a renal laceration.
[2019-01-25] MEDS ORDERED: Morphine 2 MG/ML Syringe IVPUSH ONE (11:27)
[2019-01-25] MEDS ORDERED: Ondansetron 4 MG/2 ML SDV IVPUSH ONE (11:27)
[2019-01-25] MEDS ORDERED: Sodium Chloride 0.9% 1,000 ML IV ONE (11:29)
[2019-01-25] MEDS ORDERED: HYDROmorphone 1 MG/ML Syringe ONE (11:47)
--- NOTE | 2019-01-25 12:17 | CT ---
EXAMINATION: CT chest without contrast HISTORY: Traumatic injury COMPARISON: 05/03/2015 TECHNIQUE: Axial CT imaging obtained through the chest without contrast. Coronal and sagittal reconstructions obtained. FINDINGS: The lungs are clear without focal consolidation. No pleural effusion. Mild atelectasis within the right lung base with a possible few very small pockets of subpleural air confined within the lung base. No evidence of a significant pneumothorax. Heart is normal in size without a pericardial effusion. No mediastinal or axillary lymphadenopathy. No hilar fullness. Please see abdomen and pelvis were abdominal findings. Minimally displaced right 11th rib fractures. IMPRESSION: 1. Right 11th rib fractures with possible few tiny pockets of loculated extrapleural air within the right lung base. No evidence of a significant pneumothorax or pleural effusion.
--- NOTE | 2019-01-25 13:32 | PCM.CONS ---
H&P History of Present Illness - General Date of Service: 01/25/19 Admit Problem/Dx: Admission Diagnosis/Problem Admission Diagnosis/Problem Traumatic injury Source of Information: Patient - History of Present Illness Initial Comments - Free Text/Narative: 59 y/o female kicked by a horse in the right chest area yesterday. Today she noticed very bloody urine and presented to our ER. She had been seen in [facility] yesterday and a CT scan of her lumbar spine was done but no abdominal or chest CT. Workup here included a CT scan of her abdomen which demonstrates lower right rib fractures and a significant liver hematoma measuring approximately 7cms. Dr. Muñoz has evaluated the patient and feels that transfer to a larger facility would be best. Duration of Symptoms: Reports: Day(s):, Heavy Location: Reports: Chest, Abdomen, Back Quality: Reports: Pressure Severity: Moderate Improves with: Reports: Rest Worsens with: Reports: Breathing, Movement Context: Reports: Trauma Associated Symptoms: Reports: Chest Pain. Denies: Cough, Diaphoresis, Fever/ Chills, Nausea/Vomiting, Shortness of Breath Right back/flank pain Pain Score (Numeric/FACES): 8 - Related Data Allergies/Adverse Reactions: Allergies Allergy/AdvReac Type Severity Reaction Status Date / Time Sulfa (Sulfonamide Allergy Hives Verified 01/25/19 09:37 Antibiotics) sulfamethoxazole Allergy Hives Verified 01/25/19 09:37 [From Bactrim] trimethoprim [From Bactrim] Allergy Hives Verified 01/25/19 09:37 anesthesia neck surgery Allergy Headache Uncoded 01/25/19 09:37 Home Medications: Home Meds Hydroxychloroquine Sulfate 200 mg PO DAILY 05/19/14 [History] Fexofenadine HCl [Chelsie Allergy] 180 mg PO DAILY 09/24/17 [History] Ketamine HCl [Ketamine Hydrochloride] 1 dose TOP ASDIRECTED 09/24/17 [History] Leflunomide 20 mg PO ASDIRECTED 09/24/17 [History] diphenhydrAMINE HCl [Benadryl Allergy] 50 mg PO DAILY 09/24/17 [History] Cyclobenzaprine [Flexeril] 5 mg PO BID PRN 01/28/18 [History] traMADol [Ultram] 50 mg PO TID PRN 04/25/18 [History] Past Medical History Other HEENT History: wears glasses, has upper right and lower left dental implants Cardiovascular History: Reports: Other (See Below) Other Cardiovascular History: hx of rheumatic fever Gastrointestinal History: Reports: GERD, PUD, Other (See Below) Musculoskeletal History: Reports: Back Pain, Chronic, Neck Pain, Chronic, Osteoarthritis, RA Neurological History: Reports: Concussion, Migraines, Other (See Below) Other Neuro History: hx of motion sickness Hematologic History: Reports: Anesthesia Reaction Other Hematologic History: got severe headache and nausea after neck surgery- was told it was from the anesthesia Immunologic History: Reports: Immunosuppression Oncologic (Cancer) History: Reports: Uterine Dermatologic History: Reports: Urticaria Other Dermatologic History: takes chelsie and benadryl for hives - Infectious Disease History Infectious Disease History: Reports: None - Past Surgical History Head Surgeries/Procedures: Reports: None GI Surgical History: Reports: Colonoscopy, Other (See Below) Other GI Surgeries/Procedures: 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- bowel resected Female Surgical History: Reports: Breast Biopsy, Hysterectomy, Oophorectomy Neurological Surgical History: Reports: C-Spine, Spinal Fusion Other Neurological Surgeries/Procedures: states has "bulging discs" in neck and back Other Musculoskeletal Surgeries/Procedures:: neck surgery (fusion)- has hardware Oncologic Surgical History: Reports: Other (See Below) Other Oncologic Surgeries/Procedures: hysterectomy Social & Family History - Family History Family Medical History: Unobtainable - Tobacco Use Smoking Status *Q: Never Smoker - Caffeine Use Caffeine Use: Reports: Coffee - Recreational Drug Use Recreational Drug Use: No H&P Review of Systems - Review of Systems: Review Of Systems: See Below General: Denies: Fever, Chills, Malaise HEENT: Denies: Headaches, Hearing Changes, Sore Throat, Vertigo Pulmonary: Denies: Wheezing, Pleuritic Chest Pain, Cough, Sputum, Hemoptysis Cardiovascular: Denies: Chest Pain, Palpitations, Dyspnea on Exertion, Orthopnea Gastrointestinal: Reports: Abdominal Pain, Anorexia, Decreased Appetite. Denies : Black Stool, Bloody Stool, Constipation, Diarrhea, Difficulty Swallowing, Distension, Flatus, Hematemesis, Hematochezia, Melena Genitourinary: Reports: Hematuria. Denies: Dysuria, Frequency, Burning, Pain, Urgency, Retention, Discharge, Abnormal Menses Musculoskeletal: Reports: Back Pain. Denies: Neck Pain, Shoulder Pain Skin: Denies: Cyanosis, Jaundice, Mottled, Pallor, Diaphoresis Psychiatric: Reports: No Symptoms Neurological: Reports: No Symptoms Hematologic/Lymphatic: Denies: Anemia Immunologic: Reports: No Symptoms Exam - Exam Exam: See Below - Vital Signs Vital Signs: Last Vital Signs Temp 96.9 F 01/25/19 09:29 Pulse 79 01/25/19 09:29 Resp 16 01/25/19 09:29 BP 125/65 01/25/19 09:29 Pulse Ox 99 01/25/19 09:29 Weight: 136 lb - Exam General: Alert, Oriented, Cooperative, Moderate Distress HEENT: Conjunctiva Clear, EACs Clear, EOMI. No: Scleral Icterus Neck: Supple, Trachea Midline Lungs: Clear to Auscultation, Normal Respiratory Effort. No: Decreased Breath Sounds, Crackles, Rales, Rhonchi, Rub Cardiovascular: Regular Rate, Regular Rhythm. No: Tachycardia GI/Abdominal Exam: Normal Bowel Sounds, Soft, Tender (right side). No: Guarding , Rigid, Rebound (Female) Exam: Deferred Rectal (Female) Exam: Deferred Peripheral Pulses: 4+: Posterior Tibial (L), Posterior Tibial (R), Dorsalis Pedis (L), Dorsalis Pedis (R) Skin: Warm, Dry, Intact Neurological: Cranial Nerves Intact Neuro Extensive - Mental Status: Alert, Oriented x3, Normal Mood/Affect, Normal Cognition Psychiatric: Alert, Normal Affect, Normal Mood, Anxious - Patient Data Lab Results Last 24 hrs: Laboratory Results - last 24 hr 01/25/19 01/25/19 01/25/19 Range/Units 09:42 09:42 11:05 WBC 5.15 (4.0-11.0) K/uL RBC 3.89 L (4.30-5.90) M/uL Hgb 11.5 L (12.0-16.0) g/dL Hct 35.4 L (36.0-46.0) % MCV 91.0 (80.0-98.0) fL MCH 29.6 (27.0-32.0) pg MCHC 32.5 (31.0-37.0) g/dL RDW Std Deviation 43.6 (28.0-62.0) fl RDW Coeff of Shorty 13 (11.0-15.0) % Plt Count 232 (150-400) K/uL MPV 10.00 (7.40-12.00) fL Neut % (Auto) 77.1 (48.0-80.0) % Lymph % (Auto) 12.4 L (16.0-40.0) % [place] % (Auto) 10.1 (0.0-15.0) % Eos % (Auto) 0.2 (0.0-7.0) % Baso % (Auto) 0.2 (0.0-1.5) % Neut # (Auto) 4.0 (1.4-5.7) K/uL Lymph # (Auto) 0.6 (0.6-2.4) K/uL [place] # (Auto) 0.5 (0.0-0.8) K/uL Eos # (Auto) 0.0 (0.0-0.7) K/uL Baso # (Auto) 0.0 (0.0-0.1) K/uL Nucleated RBC % 0.0 /100WBC Nucleated RBCs # 0 K/uL Sodium 142 (136-145) mmol/L Potassium 4.4 (3.5-5.1) mmol/L Chloride 105 (98-107) mmol/L Carbon Dioxide 27.2 (21.0-32.0) mmol/L BUN 13 (7.0-18.0) mg/dL Creatinine 0.7 (0.6-1.0) mg/dL Est Cr Clr Drug Dosing 82.01 mL/min Estimated GFR (MDRD) > 60.0 ml/min Glucose 112 H (74-106) mg/dL Calcium 9.2 (8.5-10.1) mg/dL Total Bilirubin 0.5 (0.2-1.0) mg/dL AST 679 H (15-37) IU/L ALT 713 H (14-63) IU/L Alkaline Phosphatase 139 H (46-116) U/L Creatine Kinase 239 (26-308) U/L Total Protein 7.2 (6.4-8.2) g/dL Albumin 4.0 (3.4-5.0) g/dL Globulin 3.2 (2.6-4.0) g/dL Albumin/Globulin Ratio 1.3 (0.9-1.6) Urine Color RED Urine Appearance CLOUDY Urine pH 7.0 (5.0-8.0) Ur Specific [place] 1.025 (1.001-1.035) Urine Protein >=300 H (NEGATIVE) mg/dL Urine Glucose (UA) NEGATIVE (NEGATIVE) mg/dL Urine Ketones TRACE H (NEGATIVE) mg/dL Urine Occult Blood LARGE H (NEGATIVE) Urine Nitrite POSITIVE H (NEGATIVE) Urine Bilirubin SMALL H (NEGATIVE) Urine Urobilinogen 0.2 (<2.0) EU/dL Ur Leukocyte Esterase TRACE H (NEGATIVE) Urine RBC TOO NUMEROUS TO CT H (0-2/HPF) Urine WBC 0-2 (0-5/HPF) Ur Epithelial Cells RARE (NONE-FEW) Urine Bacteria RARE (NEGATIVE) Result Diagrams: 01/25/19 09:42 01/25/19 09:42 Consult PN Assessment/Plan Procedures: Procedures ASSAY OF FREE THYROXINE (01/28/17) ASSAY THYROID STIM HORMONE (01/28/17) BREAST TOMOSYNTHESIS BI (08/25/18) C-REACTIVE PROTEIN (02/17/17) COMP SCREEN MAMMOGRAM ADD-ON (03/20/15) COMPLETE CBC AUTOMATED (01/28/17) COMPLETE CBC W/AUTO DIFF WBC (12/05/17) COMPREHEN METABOLIC PANEL (09/10/17) COMPUTER DX MAMMOGRAM ADD-ON (02/05/16) CT ABD & PELV W/CONTRAST (05/03/15) CT HEAD/BRAIN W/O DYE (05/03/15) CT LUMBAR SPINE W/O DYE (01/28/18) CT NECK SPINE W/O DYE (05/03/15) CT THORAX W/DYE (05/03/15) DIAGNOSTIC COLONOSCOPY (09/30/17) EGD BIOPSY SINGLE/MULTIPLE (12/11/17) EMERGENCY DEPT VISIT (01/28/18) LIPID PANEL (01/28/17) MRI LUMBAR SPINE W/O & W/DYE (08/20/17) MRI NECK SPINE W/O & W/DYE (08/20/17) RBC SED RATE AUTOMATED (02/17/17) ROUTINE VENIPUNCTURE (12/05/17) SCR MAMMO BI INCL CAD (08/25/18) THER/PROPH/DIAG INJ IV PUSH (01/28/18) TX/PRO/DX INJ NEW DRUG ADDON (01/28/18) ULTRASOUND BREAST COMPLETE (02/05/16) URINALYSIS AUTO W/O SCOPE (01/28/17) URINALYSIS AUTO W/SCOPE (06/05/17) URINE BACTERIA CULTURE (04/21/14) URINE CULTURE/COLONY COUNT (06/05/17) X-RAY EXAM HIP UNI 2-3 VIEWS (01/28/18) X-RAY EXAM HIPS BI 2 VIEWS (08/07/17) X-RAY EXAM L-S SPINE 2/3 VWS (08/07/17) X-RAY EXAM OF ANKLE (05/03/15) X-RAY EXAM OF HIP (05/03/15) X-RAY EXAM OF KNEE 3 (05/03/15) X-RAY EXAM OF LOWER LEG (05/03/15) X-RAY EXAM OF THIGH (05/03/15) (1) Struck by horse SNOMED Code(s): 200208498 Code(s): W55.12XA - STRUCK BY HORSE, INITIAL ENCOUNTER Priority: High Current Visit: Yes Qualifiers: Encounter type: initial encounter Qualified Code(s): W55.12XA - Struck by horse, initial encounter (2) Hematuria SNOMED Code(s): 81982606 Code(s): R31.9 - HEMATURIA, UNSPECIFIED Priority: Medium Current Visit: Yes (3) Liver laceration SNOMED Code(s): 633700731 Code(s): S36.113A - LACERATION OF LIVER, UNSPECIFIED DEGREE, INITIAL ENCOUNTER Priority: High Current Visit: Yes Qualifiers: Encounter type: initial encounter Qualified Code(s): S36.113A - Laceration of liver, unspecified degree, initial encounter (4) Right rib fracture SNOMED Code(s): 53979750 Code(s): S22.31XA - FRACTURE OF ONE RIB, RIGHT SIDE, INIT FOR CLOS FX Current Visit: Yes Qualifiers: Encounter type: initial encounter Rib fracture type: multiple ribs Fracture type: closed Qualified Code(s): S22.41XA - Multiple fractures of ribs , right side, initial encounter for closed fracture Problem List Initiated/Reviewed/Updated: Yes Plan: Agree patient would best be served by transfer to a larger facility with a more robust blood bank. No hemoperitoneum noted at this time. Even though there is no apparent injury to the kidney, I would suspect at least a bruise to the kidney given the hematuria.
== END 2019-01-25 12:16 ==
LOC: MW.ED 09:28
DX: S36.113A Laceration of liver, unspecified degree, initial encounter (principal); S22.41XA Multiple fractures of ribs, right side, initial encounter for closed fracture; K21.9 Gastro-esophageal reflux disease without esophagitis; W55.12XA Struck by horse, initial encounter; Z88.2 Allergy status to sulfonamides; Z88.8 Allergy status to other drugs, medicaments and biological substances; Z79.899 Other long term (current) drug therapy
CPT/HCPCS: 36415; 70450; 71250; 74177; 80053; 81001; 82550; 85025; 87086; 96374; 96375; 99284; J2270; J2405; J7040; Q9967

== ENCOUNTER 2019-07-09 09:18 | Day surgery (SDC) | payer BC ==
--- NOTE | 2019-07-09 10:13 | PCM.PREANE ---
Preanesthetic Assessment - Procedure Proposed Procedure: EGD/Colonoscopy - Anesthesia/Transfusion/Family Hx Anesthesia History: Prior Anesthesia Reaction Type of Anesthesia Reaction: Excessive Nausea/Vomiting, Other (see below) Other Type of Anesthesia Reaction Comment: headache, N&V after neck surgery, pt adopted unsure of family hx Family History of Anesthesia Reaction: No Transfusion History: No Prior Transfusion(s) Intubation History: Intubation other than for Surgery in past, Unknown - Review of Systems General: No Symptoms Pulmonary: No Symptoms Cardiovascular: No Symptoms Gastrointestinal: No Symptoms Neurological: Other Other: Reports: None - Physical Assessment NPO Status Date: 07/09/19 NPO Status Time: 05:00 Vital Signs: Last Vital Signs Temp 36.3 C 07/09/19 09:26 Pulse 75 07/09/19 09:26 Resp 16 07/09/19 09:26 BP 103/72 07/09/19 09:26 Pulse Ox 97 07/09/19 09:26 Height: 1.68 m Weight: 61.689 kg ASA Class: 2 Airway Class: Mallampati = 1 Dentition: Reports: Implants Thyro-Mental Finger Breadths: 3 Mouth Opening Finger Breadths: 3 ROM/Head Extension: Full Lungs: Clear to Auscultation Cardiovascular: Regular Rate - Allergies Allergies/Adverse Reactions: Allergies Allergy/AdvReac Type Severity Reaction Status Date / Time ibuprofen Allergy Hives Verified 07/06/19 08:46 Sulfa (Sulfonamide Allergy Hives Verified 07/06/19 07:23 Antibiotics) sulfamethoxazole Allergy Hives Verified 07/06/19 07:23 [From Bactrim] tramadol Allergy Hives Verified 07/06/19 08:46 trimethoprim [From Bactrim] Allergy Hives Verified 07/06/19 07:23 anesthesia neck surgery Allergy Headache Uncoded 07/06/19 07:23 - Blood Blood Available: No Product(s) Available: None - Anesthesia Plan Pre-Op Medication Ordered: None - Acknowledgements Anesthesia Type Planned: MAC Pt an Appropriate Candidate for the Planned Anesthesia: Yes Alternatives and Risks of Anesthesia Discussed w Pt/Guardian: Yes Pt/Guardian Understands and Agrees with Anesthesia Plan: Yes Additional Comments: Nervous. Significant Hx of nausea post anesthesia. Past neck fusion, although good ROM. Discussed anesthesia. ? answered, accepts, wishes to proceed. PreAnesthesia Questionnaire HEENT History: Reports: Other (See Below) Other HEENT History: wears glasses, has upper right and lower left dental implants Cardiovascular History: Reports: Other (See Below) Other Cardiovascular History: hx of rheumatic fever Respiratory History: Reports: None Gastrointestinal History: Reports: GERD, Other (See Below) Other Gastrointestinal History: heartburn in the past Genitourinary History: Reports: Renal Calculus Other Genitourinary History: states she currently has kidney stone Musculoskeletal History: Reports: Back Pain, Chronic, Fracture, Neck Pain, Chronic, Osteoarthritis, RA Other Musculoskeletal History: hx rib fx Neurological History: Reports: Concussion, Migraines, Other (See Below) Other Neuro History: hx of motion sickness, migraines in the past Psychiatric History: Reports: None Endocrine/Metabolic History: Reports: None Hematologic History: Reports: Anesthesia Reaction, Anemia Other Hematologic History: got severe headache and nausea after neck surgery- was told it was from the anesthesia Immunologic History: Reports: None Oncologic (Cancer) History: Reports: Uterine Dermatologic History: Reports: None - Infectious Disease History Infectious Disease History: Reports: None - Past Surgical History Head Surgeries/Procedures: Reports: None HEENT Surgical History: Reports: None Cardiovascular Surgical History: Reports: None Respiratory Surgical History: Reports: None GI Surgical History: Reports: Colonoscopy, EGD, Other (See Below) Other GI Surgeries/Procedures: 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- bowel resected Female Surgical History: Reports: Breast Biopsy, Hysterectomy, Oophorectomy Endocrine Surgical History: Reports: None Neurological Surgical History: Reports: C-Spine, Lumbar Spine Other Neurological Surgeries/Procedures: hx neck fusion & back surgery Other Musculoskeletal Surgeries/Procedures:: neck surgery (fusion)- has hardware Oncologic Surgical History: Reports: Other (See Below) Other Oncologic Surgeries/Procedures: hysterectomy Dermatological Surgical History: Reports: None - SUBSTANCE USE Smoking Status *Q: Never Smoker Recreational Drug Use History: No - HOME MEDS Home Medications: Home Meds Hydroxychloroquine Sulfate 200 mg PO BID 05/19/14 [History] Ferrous Sulfate 325 mg PO DAILY 07/06/19 [History] Hydrocortisone [Proctosol-HC] 1 applic TOP ASDIRECTED PRN 07/06/19 [History] Krill/Om-3/DHA/EPA/Phospho/Ast [Taylor-3 Krill Oil 300 mg Sfgl] 2 tab PO DAILY [History] - CURRENT (IN HOUSE) MEDS Current Meds: Current Medications Lactated Ringer's (Ringers, Lactated) 1,000 mls @ 125 mls/hr IV ASDIRECTED [facility] Last Admin: 07/09/19 09:40 Dose: 125 mls/hr
[2019-07-09] MEDS ORDERED: Lidocaine 2% 5 ML SDV ONE (10:20)
[2019-07-09] MEDS ORDERED: Propofol 200 MG/20 ML SDV ONE (10:21)
[2019-07-09] MEDS ORDERED: Ondansetron 4 MG/2 ML SDV ONE (11:10)
--- NOTE | 2019-07-09 11:59 | PCM.OPNOTE ---
- General Post-Op/Procedure Note Date of Surgery/Procedure: 07/09/19 Operative Procedure(s): egd w bx. colonoscopy Findings: see dict [id number] Pre Op Diagnosis: BRBPR Post-Op Diagnosis: Same Anesthesia Technique: Moderate Sedation Primary Surgeon: Hermes De La Cruz Pathology: egd bx Complications: None Condition: Good
--- NOTE | 2019-07-09 12:24 | PCM48HPAN ---
Post Anesthesia Note - EVALUATION WITHIN 48HRS OF ANESTHETIC Vital Signs in Normal Range: Yes Patient Participated in Evaluation: Yes Respiratory Function Stable: Yes Airway Patent: Yes Cardiovascular Function Stable: Yes Hydration Status Stable: Yes Pain Control Satisfactory: Yes Nausea and Vomiting Control Satisfactory: Yes Mental Status Recovered: Yes Vital Signs: Last Vital Signs Temp 97.3 F 07/09/19 09:26 Pulse 52 L 07/09/19 12:15 Resp 12 07/09/19 12:15 BP 93/62 07/09/19 12:15 Pulse Ox 98 07/09/19 12:15
--- NOTE | 2019-07-09 12:24 | PCM.POSTAN ---
POST ANESTHESIA ASSESSMENT - MENTAL STATUS Mental Status: Alert, Oriented - VITAL SIGNS Vital Signs: Last Vital Signs Temp 97.3 F 07/09/19 09:26 Pulse 52 L 07/09/19 12:15 Resp 12 07/09/19 12:15 BP 93/62 07/09/19 12:15 Pulse Ox 98 07/09/19 12:15 - RESPIRATORY Respiratory Status: Respiratory Rate WNL, Airway Patent, O2 Saturation Stable - CARDIOVASCULAR CV Status: Pulse Rate WNL, Blood Pressure Stable - GASTROINTESTINAL GI Status: No Symptoms - POST OP HYDRATION Hydration Status: Adequate & Stable
[2019-07-09 12:26] VITALS: BP 116/84; PULSE 56
--- NOTE | 2019-07-09 12:55 | OR ---
SURGEON: Hermes De La Cruz MD DATE OF PROCEDURE: 07/09/2019 PREOPERATIVE DIAGNOSIS: Bright red blood per rectum. POSTOPERATIVE DIAGNOSIS: Esophagogastroduodenoscopy diagnosis is gastroesophageal reflux disease and colonoscopy diagnosis is hemorrhoid. PROCEDURES PERFORMED: Esophagogastroduodenoscopy with biopsy and colonoscopy. DESCRIPTION OF PROCEDURE: EGD: The patient was taken to the endoscopy room, and with the [employer], Diprivan was administered. A well-lubricated EGD scope was gently inserted through the oropharynx, down the esophagus, passing through the gastroesophageal junction, into the stomach. The mucosa was examined upon the passage. Any etiology will be noted. Once in the stomach, we continued to advance to the distal antrum, passed through the pylorus into the second portion of the duodenum. Again, the mucosa was examined for any abnormality and etiology. The scope was then retrieved back to the stomach and then retroflexed to look at the fundus of the stomach. If a biopsy was indicated, we will biopsy the antrum, body, and gastroesophageal junction. The air will be sucked out while the scope is retrieved to reduce the patient's discomfort. The patient tolerated the procedure well. There were no intraoperative complications. Dr. De La Cruz was present through the whole procedure. Prior to surgery, a time-out had been called, the patient identified, procedure identified and antibiotic administered. The patient was taken to the endoscopy room. A time out was called, patient identified, and procedure identified. Diprivan was then administrated. Patient went from awake to sleep, hearing doctor talking or door closing is normal. Perineum inspection and digital examination were then performed. A well- lubricated colonoscope was gently inserted through the rectum, advanced past the rectosigmoid junction, the descending colon, splenic flexure, transverse colon, hepatic flexure, ascending colon, arrived to the cecum. Cecum was identified as dictated in the finding. Then the scope was carefully withdrawn while attention was paid to the mucosal surface for any abnormality. Air will be sucked out during the scope withdrawal. At the rectum, retroflexed to examine any rectal diseases, fistula or hemorrhoids. Patient tolerated procedure well. There were no intraoperative complications, and Dr. De La Cruz was present throughout the whole procedure. FINDINGS: EGD findings: 1. The patient is easily sedated with [employer]IST and Diprivan, the patient is soundly snoring. 2. Oropharynx and proximal esophagus are free of disease. Distal esophagus at GE junction at 40 shows a salmon-colored change consistent with acid reflux. Stomach rugae are normal in appearance. Antrum mildly inflamed, very mild. Duodenum is grossly normal. Scope retracted to look at the fundus of the stomach and there is no hiatal hernia. Biopsy done at antrum, body, GE junction at 40 and sucked out the gas while scope pulling out. Colonoscopy findings: 1. The patient is easily sedated with [employer]IST and Diprivan, the patient is soundly snoring. 2. Bowel prep is average, no semi-formed stool. 3. Colon is redundant at the sigmoid, requiring several maneuvering in order to get to the cecum. Cecum indicated by ileocecal fold, one-to-one indentation, appendiceal orifice. ScopeGuide is pointing south. Light emittance is not observed. Mucosa examined upon scope pulling out. The patient does not have diverticulosis, polyp, mass, growth, inflammation, stricture, ulceration, AV malformation, bleeding, none of those. The patient has some external hemorrhoids and mild internal hemorrhoids. The patient would benefit from repeat colonoscopy in 10 years from today or if clinically indicated otherwise. ARMAAN / LEMUEL /[id number]
== END 2019-07-09 12:30 | disposition home or self-care (01) ==
LOC: MW.SDS 09:18
PROVIDERS: ATTEND Surgery
DX: K62.5 Hemorrhage of anus and rectum (principal); K21.9 Gastro-esophageal reflux disease without esophagitis; K64.8 Other hemorrhoids; K64.4 Residual hemorrhoidal skin tags; M06.9 Rheumatoid arthritis, unspecified; G43.909 Migraine, unspecified, not intractable, without status migrainosus; Z88.6 Allergy status to analgesic agent; Z88.8 Allergy status to other drugs, medicaments and biological substances; Z88.2 Allergy status to sulfonamides; Z88.5 Allergy status to narcotic agent; Z79.2 Long term (current) use of antibiotics
CPT/HCPCS: 43239; 45378; J2001; J2405; J2704; J7120; 88305; 88312

== ENCOUNTER 2020-03-10 21:25 | Emergency (ER) | payer BC ==
[2020-03-10] MEDS ORDERED: Ondansetron 4 MG/2 ML SDV IVPUSH ONE (21:28)
[2020-03-10] MEDS ORDERED: fentaNYL 50 MCG/ML SDV IVPUSH ONE ×2 (21:28→22:04)
--- NOTE | 2020-03-10 21:43 | EDM.PDOC ---
ED HPI GENERAL MEDICAL PROBLEM - General Chief Complaint: Trauma Stated Complaint: NECK/BACK INJURY, TRAUMA ALERT Time Seen by Provider: 03/10/20 21:28 - History of Present Illness INITIAL COMMENTS - FREE TEXT/NARRATIVE: History of present illness: [Patient presents complaining of neck pain bilateral shoulder pain and upper back pain after being bucked off of a horse about 20 minutes prior to arrival. She thinks she landed on her right shoulder and her head no loss of consciousness. Blood thinners. She states the majority of her pain is in her lower cervical spine and upper thoracic spine. She was able to ambulate after the event with some assistance. And by private vehicle tree of arthritis both osteo-and rheumatoid.] Review of systems: As per history of present illness and below otherwise all systems reviewed and negative. Past medical history: As per history of present illness and as reviewed below otherwise noncontributory. Surgical history: As per history of present illness and as reviewed below otherwise noncontributory. Social history: No reported history of drug or alcohol abuse. Family history: As per history of present illness and as reviewed below otherwise noncontributory. Physical exam: HEENT: Small superficial abrasion to the left forehead, normocephalic, pupils reactive, negative for conjunctival pallor or scleral icterus, mucous membranes moist, throat clear, neck supple, nontender, trachea midline. Lungs: Clear to auscultation, breath sounds equal bilaterally, chest nontender. Heart: S1S2, regular, negative for clicks, rubs, or JVD. Abdomen: Soft, nondistended, nontender. Negative for masses or hepatosplenomegaly. Negative for costovertebral tenderness. Pelvis: Stable nontender. Genitourinary: Deferred. Rectal: Deferred. Extremities: Atraumatic, negative for cords or calf pain. Neurovascular unremarkable. All superficial abrasion to the right posterior lateral shoulder. Neuro: Awake, alert, oriented. Cranial nerves II through XII unremarkable. Cerebellum unremarkable. Motor and sensory unremarkable throughout. Exam nonfocal. Neck: There is pain tenderness and spasm in the lower cervical spine with point tenderness in the midline at C6 and C7 and T1 and T2. Diagnostics: [] Therapeutics: [] Impression: Blunt trauma from being thrown from a horse [] Plan: [] We will image her chest with portable chest x-ray get a cervical CT fentanyl and Zofran for pain. Then reassessed the patient Definitive disposition and diagnosis as appropriate pending reevaluation and review of above. Right Shoulder Pain Score (Numeric/FACES): 10 - Related Data Allergies Allergy/AdvReac Type Severity Reaction Status Date / Time ibuprofen Allergy Hives Verified 03/10/20 21:46 Sulfa (Sulfonamide Allergy Hives Verified 03/10/20 21:46 Antibiotics) sulfamethoxazole Allergy Hives Verified 03/10/20 21:46 [From Bactrim] tramadol Allergy Hives Verified 03/10/20 21:46 trimethoprim [From Bactrim] Allergy Hives Verified 03/10/20 21:46 anesthesia neck surgery Allergy Headache Uncoded 03/10/20 21:46 Home Meds: Home Meds Hydroxychloroquine Sulfate 200 mg PO BID 05/19/14 [History] Ferrous Sulfate 325 mg PO DAILY 07/06/19 [History] Hydrocortisone [Proctosol-HC] 1 applic TOP ASDIRECTED PRN 07/06/19 [History] Krill/Om-3/DHA/EPA/Phospho/Ast [[place]-3 Krill Oil 300 mg Sfgl] 2 tab PO DAILY [History] Past Medical History HEENT History: Reports: Other (See Below) Other HEENT History: wears glasses, has upper right and lower left dental implants Cardiovascular History: Reports: Other (See Below) Other Cardiovascular History: hx of rheumatic fever Respiratory History: Reports: None Gastrointestinal History: Reports: GERD, Other (See Below) Other Gastrointestinal History: heartburn in the past Genitourinary History: Reports: Renal Calculus Other Genitourinary History: states she currently has kidney stone Musculoskeletal History: Reports: Back Pain, Chronic, Fracture, Neck Pain, Chronic, Osteoarthritis, RA Other Musculoskeletal History: hx rib fx Neurological History: Reports: Concussion, Migraines, Other (See Below) Other Neuro History: hx of motion sickness, migraines in the past Psychiatric History: Reports: None Endocrine/Metabolic History: Reports: None Hematologic History: Reports: Anesthesia Reaction, Anemia Other Hematologic History: got severe headache and nausea after neck surgery- was told it was from the anesthesia Immunologic History: Reports: None Oncologic (Cancer) History: Reports: Uterine Dermatologic History: Reports: None - Infectious Disease History Infectious Disease History: Reports: None - Past Surgical History Head Surgeries/Procedures: Reports: None HEENT Surgical History: Reports: None Cardiovascular Surgical History: Reports: None Respiratory Surgical History: Reports: None GI Surgical History: Reports: Colonoscopy, EGD, Other (See Below) Other GI Surgeries/Procedures: 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- bowel resected Female Surgical History: Reports: Breast Biopsy, Hysterectomy, Oophorectomy Endocrine Surgical History: Reports: None Neurological Surgical History: Reports: C-Spine, Lumbar Spine Other Neurological Surgeries/Procedures: hx neck fusion & back surgery Other Musculoskeletal Surgeries/Procedures:: neck surgery (fusion)- has hardware Oncologic Surgical History: Reports: Other (See Below) Other Oncologic Surgeries/Procedures: hysterectomy Dermatological Surgical History: Reports: None Social & Family History - Family History Family Medical History: Unobtainable - Caffeine Use Caffeine Use: Reports: Coffee Review of Systems - Review of Systems Review Of Systems: See Below ED EXAM, GENERAL - Physical Exam Exam: See Below Course - Vital Signs Text/Narrative:: One-view portable chest read and interpreted by me no acute cardiopulmonary pathology is evident there is a C-spine fusion at [address] cervical spine interpreted by me demonstrates a fracture of C7. Cervical spine read by radiology shows a fracture of C7 with a pedicle fracture and a unilateral jumped facet. At 10:30 PM I discussed the case with Dr. Jorgensen in the ED at [place]. Will accept the patient. 1035 the patient was reexamined. She is more comfortable after Ativan and a couple doses of fentanyl she is still neurologically intact and has normal rn lpn lvn and shoulder shrug strength bilaterally. Lower extremities are within normal limits. Last Recorded V/S: Last Vital Signs Temp 36.1 C 03/10/20 22:07 Pulse 70 03/10/20 22:07 Resp 22 H 03/10/20 22:07 BP 136/89 03/10/20 22:07 Pulse Ox 95 03/10/20 22:07 - Orders/Labs/Meds Orders: Active Orders 24 hr Category Date Time Status COMPREHENSIVE METABOLIC PN,CMP [CHEM] Stat Lab 03/10/20 22:22 Ordered Sodium Chloride 0.9% @ 150 MLS/HR (1,000ml) Med 03/10/20 22:30 Ordered Sodium Chloride 0.9% [Normal Saline] 1,000 ml IV ASDIRECTED Medication Orders Sodium Chloride (Normal Saline) 1,000 mls @ 150 mls/hr IV ASDIRECTED [facility] Labs: Laboratory Tests 03/10/20 03/10/20 Range/Units 21:30 21:30 WBC 4.98 (4.0-11.0) K/uL RBC 4.29 L (4.30-5.90) M/uL Hgb 13.6 (12.0-16.0) g/dL Hct 40.5 (36.0-46.0) % MCV 94.4 (80.0-98.0) fL MCH 31.7 (27.0-32.0) pg MCHC 33.6 (31.0-37.0) g/dL RDW Std Deviation 45.5 (28.0-62.0) fl RDW Coeff of [place] 13 (11.0-15.0) % Plt Count 211 (150-400) K/uL MPV 10.10 (7.40-12.00) fL Neut % (Auto) 51.8 (48.0-80.0) % Lymph % (Auto) 39.4 (16.0-40.0) % [place] % (Auto) 6.6 (0.0-15.0) % Eos % (Auto) 1.6 (0.0-7.0) % Baso % (Auto) 0.6 (0.0-1.5) % Neut # (Auto) 2.6 (1.4-5.7) K/uL Lymph # (Auto) 2.0 (0.6-2.4) K/uL [place] # (Auto) 0.3 (0.0-0.8) K/uL Eos # (Auto) 0.1 (0.0-0.7) K/uL Baso # (Auto) 0.0 (0.0-0.1) K/uL Nucleated RBC % 0.0 /100WBC Nucleated RBCs # 0 K/uL INR 0.96 Meds: Medications Generic Name Dose Route Start Last Admin Trade Name Freq PRN Reason Stop Dose Admin Sodium Chloride 1,000 mls @ 150 mls/hr 03/10/20 22:30 Normal Saline IV ASDIRECTED CHEIKH Discontinued Medications Generic Name Dose Route Start Last Admin Trade Name Freq PRN Reason Stop Dose Admin Fentanyl 50 mcg 03/10/20 21:28 03/10/20 21:48 Fentanyl IVPUSH 03/10/20 21:29 50 mcg ONETIME ONE Administration Fentanyl Confirm 03/10/20 22:03 03/10/20 22:05 Fentanyl Administered 03/10/20 22:04 Not Given Dose 50 mcg .ROUTE .STK-MED ONE Fentanyl 50 mcg 03/10/20 22:04 03/10/20 22:04 Fentanyl IVPUSH 03/10/20 22:05 50 mcg ONETIME ONE Administration Lorazepam 1 mg 03/10/20 22:13 03/10/20 22:19 Ativan IVPUSH 03/10/20 22:14 1 mg ONETIME ONE Administration Ondansetron HCl 4 mg 03/10/20 21:28 03/10/20 21:48 Zofran IVPUSH 03/10/20 21:29 4 mg ONETIME ONE Administration Departure - Departure Time of Disposition: 22:36 Disposition: DC/Tfer to Acute Hospital 02 Clinical Impression: Fall from horse Cervical spine fracture Qualifiers: Encounter type: initial encounter Cervical vertebra fracture level: C7 Fracture alignment: displaced - Discharge Information *PRESCRIPTION DRUG MONITORING PROGRAM REVIEWED*: Not Applicable *COPY OF PRESCRIPTION DRUG MONITORING REPORT IN PATIENT MICHAEL: Not Applicable Forms: ED Department Discharge Sepsis Event Note - Focused Exam Vital Signs: Vital Signs Temp Pulse Resp BP Pulse Ox 03/10/20 22:07 36.1 C 70 22 H 136/89 95 03/10/20 21:56 69 21 H 135/83 100 03/10/20 21:25 36.3 C 66 22 H 145/93 H 97 Date Exam was Performed: 03/10/20 Time Exam was Performed: 22:34 - My Orders Last 24 Hours: My Active Orders 03/10/20 22:22 COMPREHENSIVE METABOLIC PN,CMP [CHEM] Stat 03/10/20 22:30 Sodium Chloride 0.9% @ 150 MLS/HR (1,000ml) Sodium Chloride 0.9% [Normal Saline ] 1,000 ml IV ASDIRECTED - Assessment/Plan Last 24 Hours: My Active Orders 03/10/20 22:22 COMPREHENSIVE METABOLIC PN,CMP [CHEM] Stat 03/10/20 22:30 Sodium Chloride 0.9% @ 150 MLS/HR (1,000ml) Sodium Chloride 0.9% [Normal Saline ] 1,000 ml IV ASDIRECTED
--- NOTE | 2020-03-10 21:51 | CR ---
Chest: Portable view of the chest was obtained. Comparison: No prior chest imaging is available. Heart size and mediastinum are normal. Lungs are clear with no acute parenchymal change. Previous cervical spine surgery is noted. Minimal scoliosis is noted within the spine. Mild disc space narrowing is scattered within the thoracic spine. Impression: 1. Findings as noted above. 2. Nothing acute is appreciated on portable chest x-ray. Diagnostic code #2 This report was dictated in MDT
[2020-03-10] MEDS ORDERED: fentaNYL 50 MCG/ML SDV ONE (22:03)
[2020-03-10 22:08] VITALS: BP 136/89; PULSE 70
[2020-03-10] MEDS ORDERED: LORazepam 2 MG/ML SDV IVPUSH ONE (22:13)
--- NOTE | 2020-03-10 22:13 | CT ---
CT cervical spine Technique: Multiple axial sections were obtained from above C1 inferiorly to the bottom of T6. Reconstructed sagittal and coronal images were reviewed. Comparison: Previous CT cervical spine study of 05/03/15 and MRI cervical spine study of 08/20/17. Findings: Acute displaced fracture is identified involving the left lamina of C7 as well as displaced pedicle fracture on the right side at C7. There is slight spondylolisthesis being seen at C7-T1 measuring approximately 1.5-2 mm. The apophyseal joint is dislocated at C6-7 on the right side. This represents a unilateral locked facet. No additional fracture is seen. Severe disc space narrowing is noted at C4-5 with posterior osteophytes and anterior osteophytes. Severe disc space narrowing is noted at C5-6 and C6-7 with anterior plate and screws. Degenerative change is noted between the dens and anterior arch of C1. Impression: 1. Fracture within the left lamina at C7 showing displacement. Displaced pedicle fracture is also noted on the right side at C7. Mild spondylolisthesis is noted at C7-T1. Unilateral locked facet is noted on the right side at C6-7. Fractures of C7 are unstable and surgical intervention will be needed. 2. Degenerative change as noted above. Previous surgery as noted above. Diagnostic code #5 This report was dictated in MDT
[2020-03-10] MEDS ORDERED: Sodium Chloride 0.9% 1,000 ML IV SCH (22:30)
[2020-03-10 22:37] LABS: BLOOD UREA NITROGEN,BUN 31 mg/dL (7.0-18.0); CARBON DIOXIDE,CO2 26.3 mmol/L (21.0-32.0); CHLORIDE,CL 101 mmol/L (98-107); GLUCOSE RANDOM 132 mg/dL (74-106); POTASSIUM,K 4.3 mmol/L (3.5-5.1); SODIUM,NA 140 mmol/L (136-145)
== END 2020-03-10 23:04 ==
LOC: MW.ED 21:25
DX: S12.600A Unspecified displaced fracture of seventh cervical vertebra, initial encounter for closed fracture (principal); Z88.6 Allergy status to analgesic agent; Z88.2 Allergy status to sulfonamides; Z88.5 Allergy status to narcotic agent; Z88.4 Allergy status to anesthetic agent; V80.010A Animal-rider injured by fall from or being thrown from horse in noncollision accident, initial encounter
CPT/HCPCS: 36415; 71045; 72125; 80053; 85025; 85610; 96374; 96375; 99285; J2060; J2405; J3010; 99283

== ENCOUNTER 2021-11-14 07:58 | Day surgery (SDC) | payer BC ==
[2021-11-14] MEDS ORDERED: Lidocaine 2% 5 ML SDV ONE (09:53)
[2021-11-14] MEDS ORDERED: fentaNYL 100 MCG/2 ML SDV ONE (09:54)
[2021-11-14] MEDS ORDERED: Propofol 200 MG/20 ML SDV ONE (09:54)
[2021-11-14 11:07] VITALS: BP 105/57; PULSE 56
== END 2021-11-14 11:35 | disposition home or self-care (01) ==
LOC: MW.SDS 07:58
PROVIDERS: ATTEND Surgery
DX: K22.89 Other specified disease of esophagus (principal); R13.10 Dysphagia, unspecified; D64.9 Anemia, unspecified; M06.9 Rheumatoid arthritis, unspecified; Z88.8 Allergy status to other drugs, medicaments and biological substances; Z88.2 Allergy status to sulfonamides; Z88.5 Allergy status to narcotic agent; Z79.899 Other long term (current) drug therapy; Z87.891 Personal history of nicotine dependence; Z98.890 Other specified postprocedural states; Z86.16 Personal history of COVID-19; Z01.812 Encounter for preprocedural laboratory examination; Z20.822 Contact with and (suspected) exposure to COVID-19
CPT/HCPCS: 43239; 87635; J2704; J3010; J7120; U0002